=== PATIENT | male | born 1995 | race Hispanic/Latino ===

== ENCOUNTER 2020-09-13 09:55 | Emergency (ER) | payer SELFPAY ==
[2020-09-13] MEDS ORDERED: Ketorolac Tromethamine 30 MG/ML VIAL ONE (12:22)
== END 2020-09-13 12:30 | disposition home or self-care (01) ==
LOC: CSHERS 09:55
DX: S63.501A Unspecified sprain of right wrist, initial encounter (principal); W10.9XXA Fall (on) (from) unspecified stairs and steps, initial encounter
CPT/HCPCS: J1885